=== PATIENT | male | born 1965 | race Hispanic/Latino ===

== ENCOUNTER 2017-06-05 03:41 | Emergency (ER) | payer SELFPAY ==
[2017-06-05 05:06] VITALS: BP 157/99
[2017-06-05] MEDS ORDERED: XYLOCAINE 2% INFILTRATI ONE (05:16)
[2017-06-05] MEDS ORDERED: TRIPLE ANTIBIOTIC TP ONE (05:16)
[2017-06-05] MEDS ORDERED: BOOSTRIX IM ONE ×2 (05:19→05:20)
--- NOTE | 2017-06-05 05:22 | Emergency Department Report ---
- General Chief Complaint: Wound/Laceration Stated Complaint: LACERATION RIGHT EYE BROWS Time Seen by Provider: 06/05/17 05:14 Source: patient Mode of arrival: Ambulatory Limitations: No Limitations - History of Present Illness Initial Comments: 52-year-old male past medical history none presents with complaint of laceration above right eyebrow. Patient states that while handling a metal pipe while at work at 3 AM it slipped and hit him over right eyebrow. Patient denies loss of consciousness. States he has a laceration above his right eyebrow. Currently covered with gauze. Is unaware last tetanus status. Patient is awake alert and oriented 3 fully lucid. Denies any blurry vision or headache. Denies any other injury sustained. Patient is ambulatory without assistance. Denies any neck tenderness. Onset/Timin -: hour(s) Place: work Patient Tetanus UTD: No Context: accidental Associated Symptoms: pain - Related Data Previous Rx's Medication Instructions Recorded Last Taken Type Bacitracin Zinc Oint [Antibiotic 1 applicatio TP BID #1 tube 06/05/17 Unknown Rx Oint] Ibuprofen [Motrin] 600 mg PO Q8H PRN #15 tablet 06/05/17 Unknown Rx Allergies Allergy/AdvReac Type Severity Reaction Status Date / Time No Known Allergies Allergy Unverified 06/05/17 05:00 ED Review of Systems ROS: Stated complaint: LACERATION RIGHT EYE BROWS Other details as noted in HPI Constitutional: denies: chills, fever Eyes: denies: eye pain, eye discharge, vision change ENT: denies: ear pain, throat pain Respiratory: denies: cough, shortness of breath, wheezing Cardiovascular: denies: chest pain, palpitations Endocrine: no symptoms reported Gastrointestinal: denies: abdominal pain, nausea, diarrhea Genitourinary: denies: urgency, dysuria Musculoskeletal: denies: back pain, joint swelling, arthralgia Skin: denies: rash, lesions Neurological: denies: headache, weakness, paresthesias Psychiatric: denies: anxiety, depression Hematological/Lymphatic: denies: easy bleeding, easy bruising ED Past Medical Hx - Past Medical History Previous Medical History?: No - Surgical History Past Surgical History?: Yes Additional Surgical History: tonsilectomy - Social History Smoking Status: Current Every Day Smoker - Medications Home Medications: Home Medications Medication Instructions Recorded Confirmed Last Taken Type Bacitracin Zinc Oint [Antibiotic 1 applicatio TP BID #1 tube 06/05/17 Unknown Rx Oint] Ibuprofen [Motrin] 600 mg PO Q8H PRN #15 tablet 06/05/17 Unknown Rx ED Physical Exam - General Limitations: No Limitations General appearance: alert, in no apparent distress - Head Head exam: Present: normocephalic - Expanded Head Exam Expanded Head exam: Present: laceration 1 - Stellate laceration here - Eye Eye exam: Present: normal appearance, PERRL, EOMI - ENT ENT exam: Present: mucous membranes moist - Neck Neck exam: Present: normal inspection, full ROM - Respiratory Respiratory exam: Present: normal lung sounds bilaterally. Absent: respiratory distress - Cardiovascular Cardiovascular Exam: Present: regular rate, normal rhythm. Absent: systolic murmur, diastolic murmur, rubs, gallop - GI/Abdominal GI/Abdominal exam: Present: soft, normal bowel sounds - Rectal Rectal exam: Present: deferred - Extremities Exam Extremities exam: Present: normal inspection - Back Exam Back exam: Present: normal inspection - Neurological Exam Neurological exam: Present: alert, oriented X3 - Psychiatric Psychiatric exam: Present: normal affect, normal mood - Skin Skin exam: Present: warm, dry, intact, normal color. Absent: rash ED Course Vital Signs 06/05/17 05:01 Temperature 98.3 F Pulse Rate 95 H Respiratory 18 Rate Blood Pressure 157/99 O2 Sat by Pulse 97 Oximetry - Laceration /Wound Repair Right Face Wound Location: face (above right eyebrow), upper extremity Wound Length (cm): 2 Wound's Depth, Shape: irregular, stellate Irrigated w/ Saline (ccs): 500 Anesthesia: 1% Lidocaine Volume Anesthetic (ccs): 3 Wound Debrided: minimal Wound Repaired With: sutures Suture Size/Type: 5:0, nylon Number of Sutures: 4 Progress: Area infiltrated with lidocaine without epinephrine good local anesthesia achieved. Y shaped stellate laceration. 4 sutures placed with good closure. Wound irrigated with saline before closure. Procedure tolerated well with minimal bleeding. Covered with Triple Antibiotic ointment and Band-Aid afterward. ED Medical Decision Making - Medical Decision Making A/P: Forehead Laceration 1- sutures to be removed in 5-7 days 2- tetanus updated today 3- Motrin when necessary, triple antibiotic ointment 4- pt advised to return to the ED for any fevers chills pus drainage erythema at site of laceration Critical care attestation.: If time is entered above; I have spent that time in minutes in the direct care of this critically ill patient, excluding procedure time. ED Disposition Clinical Impression: Forehead laceration Qualifiers: Encounter type: initial encounter Qualified Code(s): S01.81XA - Laceration without foreign body of other part of head, initial encounter Disposition: TO HOME OR SELFCARE Is pt being admited?: No Does the pt Need Aspirin: No Condition: Stable Instructions: Suture Care (ED), Laceration (ED) Additional Instructions: Sutures to be removed in 5-7 days Prescriptions: Bacitracin Zinc Oint [Antibiotic Oint] 1 applicatio TP BID #1 tube Ibuprofen [Motrin] 600 mg PO Q8H PRN #15 tablet PRN Reason: Pain Referrals: [facility] [Provider Group] - 3-5 Days Forms: Work/School Release Form(ED) Time of Disposition: 05:24
== END 2017-06-05 06:04 | disposition home or self-care (01) ==
LOC: ED 03:41
DX: S01.81XA Laceration without foreign body of other part of head, initial encounter (principal); F17.200 Nicotine dependence, unspecified, uncomplicated; W22.8XXA Striking against or struck by other objects, initial encounter; Y93.89 Activity, other specified; Y92.89 Other specified places as the place of occurrence of the external cause; Y99.8 Other external cause status
CPT/HCPCS: 90471; 90715; 99282; A6250